=== PATIENT | female | born 1955 ===

== ENCOUNTER 2017-01-14 12:05 | Emergency (ER) | payer OTHER ==
[2017-01-14 12:25] VITALS: TEMP 98.1
[2017-01-14] MEDS ORDERED: Albuterol-Ipratrop 3 mg / 0.5 (3 ml) UD IH STA ×2 (13:26→14:56)
[2017-01-14] MEDS ORDERED: Albuterol-Ipratrop 3 mg / 0.5 (3 ml) UD ONE ×2 (13:50→15:17)
[2017-01-14 14:00] LABS: BASO # 0.1 K/uL (0.0-0.2); BASO % 0.7 % (0.0-2.0); EOS # 0.3 K/uL (0.0-0.7); EOS % 3.5 % (0.0-4.0); HEMOGLOBIN 14.9 g/dL (11.0-16.0); LYMPH # 2.8 K/uL (1.0-4.3); LYMPH % 32.8 % (20.0-40.0); MEAN CELL VOLUME 84.8 fL (81.0-99.0); MEAN CORPUSCULAR HEMOGLOBIN 27.9 pg (27.0-31.0); MEAN CORPUSCULAR HGB CONC 32.9 g/dL (33.0-37.0); MONO # 0.6 K/uL (0.0-0.8); NEUT # 4.7 K/uL (1.8-7.0); RBC 5.35 Mil/uL (3.80-5.20); RED CELL DISTRIBUTION WIDTH 13.3 % (11.5-14.5); WHITE BLOOD COUNT 8.4 K/uL (4.8-10.8)
[2017-01-14 14:10] LABS: D DIMER < 200 ng/mlDDU (0-243); PARTIAL THROMBOPLASTIN TIME 28 SECONDS (21-34); PROTHROMBIN TIME 10.8 SECONDS (9.7-12.2)
--- NOTE | 2017-01-14 14:10 | RAD ---
HISTORY: SOB, cough COMPARISON: 10/11/2016 TECHNIQUE: Chest PA and lateral FINDINGS: LUNGS: No active pulmonary disease. PLEURA: No significant pleural effusion identified. No pneumothorax apparent. CARDIOVASCULAR: Normal. OSSEOUS STRUCTURES: Stable appearing minimally dextroscoliotic thoracolumbar spinal deformity. VISUALIZED UPPER ABDOMEN: Normal. OTHER FINDINGS: None. IMPRESSION: No acute cardiopulmonary disease encounter compare to prior chest radiograph 10/11/2016.
[2017-01-14 14:12] LABS: ALBUMIN 4.3 g/dL (3.5-5.0)
[2017-01-14 14:14] LABS: GFR AFRICAN-AMERICAN > 60; GFR NON-AFRICAN AMERICAN > 60
[2017-01-14 14:15] LABS: ALB/GLOB RATIO 1.2 (1.0-2.1); ALT/SGPT 44 U/L (9-52); AST/SGOT 27 U/L (14-36); BLOOD UREA NITROGEN 13 mg/dL (7-17); CALCIUM 9.9 mg/dl (8.6-10.4)
[2017-01-14 14:16] LABS: MAGNESIUM 2.1 mg/dL (1.6-2.3)
[2017-01-14 14:22] LABS: B-TYPE NATRIURETIC PEPTIDE 31.5 pg/mL (0-900)
--- NOTE | 2017-01-14 14:28 | C.PDOC ---
Time Seen by Provider: 01/14/17 13:08 Chief Complaint (Nursing): Cough, Cold, Congestion History Per: Patient Onset/Duration Of Symptoms: Days (about 2 weeks) Current Symptoms Are (Timing): Still Present Associated Symptoms: Sore Throat, Cough Severity: Moderate Recent travel outside of the [place]: No Additional History Per: Prior Records Past Medical History Reviewed: Historical Data, Nursing Documentation, Vital Signs Vital Signs: Last Vital Signs Temp 98.1 F 01/14/17 14:46 Pulse 70 01/14/17 14:46 Resp 22 01/14/17 14:46 BP 131/79 01/14/17 14:46 Pulse Ox 96 01/14/17 14:46 - Medical History PMH: Asthma Other Surgeries: Hysterectomy. Breast implants. Family History: States: Unknown Family Hx - Social History Hx Tobacco Use: No Hx Alcohol Use: Yes Hx Substance Use: No Review Of Systems Except As Marked, All Systems Reviewed And Found Negative. Constitutional: Positive for: Malaise. Negative for: Fever ENT: Negative for: Nose Congestion Cardiovascular: Positive for: Chest Pain (when coughing) Respiratory: Positive for: Cough, Sputum, Wheezing Gastrointestinal: Positive for: Abdominal Pain (bloating). Negative for: Vomiting, Diarrhea Musculoskeletal: Negative for: Neck Pain, Leg Pain Skin: Negative for: Rash Neurological: Negative for: Weakness, Numbness, Seizures, Altered Mental Status Physical Exam - Physical Exam Appears: Non-toxic, No Acute Distress Skin: Normal Color, Warm, Dry, No Rash Head: Atraumatic, Normacephalic Eye(s): bilateral: Normal Inspection, PERRL, EOMI Throat: Erythema, No Exudate, No Drooling, No Mass Neck: Normal ROM, Supple Cardiovascular: Rhythm Regular Respiratory: No Accessory Muscle Use, Rhonchi, Wheezing Gastrointestinal/Abdominal: Soft, No Tenderness Back: No CVA Tenderness Extremity: Normal ROM, No Pedal Edema, No Calf Tenderness Neurological/Psych: Oriented x3, Normal Motor, Normal Sensation ED Course And Treatment - Laboratory Results Result Diagrams: 01/14/17 13:54 01/14/17 13:54 Lab Interpretation: No Acute Changes ECG: Interpreted By Me, Viewed By Me ECG Rhythm: Sinus Rhythm, Nonspecific Changes ECG Interpretation: No Acute Changes Rate From EC O2 Sat by Pulse Oximetry: 97 Pulse Ox Interpretation: Normal - Radiology CXR: Viewed By Me, Read By Radiologist CXR Interpretation: Yes: No Acute Disease Progress Note: Pt feels much better and wants to go home. Lungs clear. Reassessment Condition: Improved Progress - Interventions Interventions:: Observation, Intravenous fluid - Medications Administered Inhaled nebulized: Anticholinergic, Beta-2 agonist Intravenous: Corticosteroid - Data Reviewed Data Reviewed: Lab, Diagnostic imaging, EKG, Old records - Patient Status Patient status: Mostly improved - Continuity of Care Discussed patient case with:: Patient, ED Nurse - Patient Plan Patient Plan: Discharge, F/U with PCP, Continue present meds Disposition Counseled Patient/Family Regarding: Studies Performed, Diagnosis, Need For Followup, Rx Given - Disposition Disposition: HOME/ ROUTINE Disposition Time: 16:01 Condition: IMPROVED Additional Instructions: Follow up with your doctor within 2 days for further evaluation and treatment. Return to the ER if you develop shortness of breath, fever, worsening of symptoms or if you have any other concerns. Prescriptions: Azithromycin [Zithromax] 1 dose PO DAILY #1 pkt Benzonatate 200 mg PO TID PRN #30 capsule PRN Reason: Cough Methylprednisolone [Medrol] 1 dose PO DAILY #1 packet Instructions: Acute Bronchitis (ED) - Clinical Impression Clinical Impression: Bronchitis
[2017-01-14 14:47] VITALS: RESP 22
[2017-01-14] MEDS ORDERED: Sodium Chloride 0.9% 1,000 ML IV ONE (14:55)
[2017-01-14] MEDS ORDERED: Sodium Chloride 0.9% 1,000 ML ONE (15:17)
[2017-01-14 16:03] VITALS: O2SAT 97
[2017-01-14 16:31] VITALS: BP 126/66; PULSE 78
--- NOTE | 2017-01-16 16:08 | CARD ---
APPROVED REPORT EKG Measurement Heart [id number] <Conclusion> Normal sinus rhythm RSR' or QR pattern in V1 suggests right ventricular conduction delay Borderline EKG
== END 2017-01-14 16:31 | disposition home or self-care (01) ==
LOC: C.ER 12:05
DX: J20.9 Acute bronchitis, unspecified (principal)
CPT/HCPCS: 71020; 80053; 83735; 83880; 84484; 85025; 85378; 85610; 85730; 93005; 94150; 94640; 96361; 96374; 96375; 99284; C9113; J2930; J7040